=== PATIENT | male | born 1960 | race African-American/Black ===

== ENCOUNTER 2019-05-02 12:17 | Day surgery (SDC) | payer OTHER ==
[2019-05-02 12:45] VITALS: BMI 27.0
[2019-05-02] MEDS ORDERED: MIDAZOLAM HCL 2 MG/2 ML SINGLE DOSE VIAL ONE ×2 (14:17)
--- NOTE | 2019-05-02 14:29 | OP ---
Operative Note - Note: Operative Date: 05/02/19 Pre-Operative Diagnosis: right renal stones Operation: right eswl Findings: 3mm stone x 2 in right mid pole Post-Operative Diagnosis: Same as Pre-op Surgeon: Tam Gonzalez Anesthesia: Fractional Operative Report Dictated: Yes
[2019-05-02 14:58] VITALS: TEMP 98.1
--- NOTE | 2019-05-02 15:01 | OP ---
DATE OF OPERATION: 05/02/2019 PREOPERATIVE DIAGNOSIS: Right renal stones. POSTOPERATIVE DIAGNOSIS: Right renal stones. PROCEDURE: Right extracorporeal shock-wave lithotripsy. ATTENDING: Caroline Finch MD ANESTHESIA: Fractional. DESCRIPTION OF PROCEDURE: Patient was brought in the operating room and placed in a supine position on the operating room table. Ultrasonography and fluoroscopy were performed. Two stones each measuring 3-mm were identified in the right mid pole. Anesthesia and preoperative antibiotics were then administered. Shock-wave lithotripsy was subsequently started. Excellent fragmentation of stones was noted under real time ultrasonography and fluoroscopy. Patient tolerated the procedure very well. No complications were noted. CAROLINE FINCH M.D. [id number]
[2019-05-02 16:20] VITALS: BP 146/95; PULSE 64
== END 2019-05-02 16:21 | disposition home or self-care (01) ==
LOC: JASU-SURG 12:17
PROVIDERS: ATTEND Urology
PROC: 0TF3XZZ Fragmentation in Right Kidney Pelvis, External Approach (ICD-10-PCS; principal; 2019-05-02 14:45)
DX: N20.0 Calculus of kidney (principal)

== ENCOUNTER 2024-04-25 05:07 | Day surgery (SDC) | payer OTHER ==
[2024-04-21 12:50] VITALS: BMI 26.1
[2024-04-25 08:55] VITALS: RESP 18; TEMP 97.7
[2024-04-25] MEDS ORDERED: MIDAZOLAM HCL 2 MG/2 ML SINGLE DOSE VIAL ONE (09:43)
[2024-04-25] MEDS ORDERED: PROPOFOL 20 ML ONE (09:44)
[2024-04-25 11:37] VITALS: BP 139/70; PULSE 60
== END 2024-04-25 11:41 | disposition home or self-care (01) ==
LOC: JASU-SURG 05:07
PROVIDERS: ATTEND Urology
PROC: 0TF4XZZ Fragmentation in Left Kidney Pelvis, External Approach (ICD-10-PCS; principal; 2024-04-25 09:53)
DX: N20.0 Calculus of kidney (principal)